=== PATIENT | female | born 1995 | race Caucasian/White ===

== ENCOUNTER 2024-03-02 22:52 | Emergency (ER) | payer BC ==
[2024-03-02 22:57] VITALS: BMI 28.3
[2024-03-02] MEDS ORDERED: ACETAMINOPHEN 325 MG TABLET (FP) ONE (23:27)
[2024-03-02] MEDS: ACETAMINOPHEN 500 MG TABLET (FP) PO ONE (23:32)
[2024-03-03 00:18] VITALS: BP 117/75; PULSE 78; RESP 13; TEMP 97.6
== END 2024-03-03 00:35 | disposition home or self-care (01) ==
LOC: JER 22:52
DX: S93.492A Sprain of other ligament of left ankle, initial encounter (principal); X50.1XXA Overexertion from prolonged static or awkward postures, initial encounter
CPT/HCPCS: 73610-TC-LT-FY; 73630-TC-LT; 99283-25